=== PATIENT | female | born 1955 | race Asian ===

== ENCOUNTER 2017-12-23 15:07 | Emergency (ER) | payer OTHER ==
--- NOTE | 2017-12-23 16:44 | ED Physician Documentation ---
History of Present Illness - Stated complaint Stated Complaint: LEG SWELLING/PX - Chief complaint Chief Complaint: General - Additonal information Additional information: 62-year-old female presents the emergency department with intermittent leg cramps which have been worse in the right lower extremity than the left. The patient also reports intermittent leg swelling. Presently, the patient has no leg pain or swelling. The patient has recently been tiling and being in awkward positions. The patient denies any pain in her joints, redness, fevers, chest pain, shortness of breath. The patient also reports a rash on her right lower l eg. Symptoms currently are described as mild. No other associated symptoms Review of Systems Constitutional: denies: Fever, Chills Throat: denies: Sore throat Cardiac: denies: Chest pain / pressure, Palpitations Respiratory: denies: Cough Skin: reports: Rash Musculoskeletal: reports: Extremity pain. denies: Neck pain, Back pain, Extremity swelling, Joint swelling Immunocompromised: denies: Chemotherapy PD PAST MEDICAL HISTORY - Past Medical History Past Medical History: No - Past Surgical History Past Surgical History: No - Present Medications Home Medications: Ambulatory Orders Medication Instructions Recorded Confirmed No Known Home Medications 12/23/17 12/23/17 - Allergies Allergies/Adverse Reactions: Allergies Allergy/AdvReac Type Severity Reaction Status Date / Time No Known Drug Allergies Allergy Verified 12/23/17 15:14 - Social History Does the pt smoke?: Yes Smoking Status: Current every day smoker Does the pt drink ETOH?: Yes ETOH Use: Wine Does the pt have substance abuse?: No - Immunizations Immunizations are current?: Yes - POLST Patient has POLST: No PD ED PE NORMAL - General General: Alert and oriented X 3, No acute distress - HEENT HEENT: Atraumatic, PERRL, EOMI, Ears normal - Neck Neck: Supple, no meningeal sign - Cardiac Cardiac: RRR, Strong equal pulses - Respiratory Respiratory: No respiratory distress, Clear bilaterally - Derm Derm: Other (The patient has 2 small areas of contact dermatitis on her right lower extremity). No: No rash - Extremities Extremities: No deformity, No tenderness to palpate, Normal ROM s pain, No edema, No calf tenderness / cord, Other (The patient has no acute tenderness of her lower extremities, there is no swelling of the lower extremities, no signs of abscess or cellulitis. The patient has a normal dorsalis pedis pulse bilaterally and normal cap refill.) - Neuro Neuro: Alert and oriented X 3, No motor deficit, Normal speech - Psych Psych: Normal affect PD ED PE EXPANDED - Extremities JENNIFER LE visual: 1 - rash (Contact dermatitis) Results - Vitals Vitals: Vital Signs - 24 hr 12/23/17 12/23/17 15:11 18:26 Temperature 36.0 C L 36.6 C Heart Rate 95 76 Respiratory 16 16 Rate Blood Pressure 146/85 H 125/81 H O2 Saturation 99 100 Oxygen O2 Source Room air - Labs Labs: Laboratory Tests 12/23/17 16:52 Sodium 142 Potassium 3.8 Chloride 109 Carbon Dioxide 26 Anion Gap 7.0 BUN 16 Creatinine 0.6 Estimated GFR (MDRD) 101 Glucose 110 H Calcium 8.8 Total Creatine Kinase 260 PD MEDICAL DECISION MAKING - ED course ED course: A venous ultrasound was ordered to rule out a DVT, the patient has declined the study since she is currently not having any acute symptoms. I explained to the patient that I thought the probability of a DVT was low risk but I could not fully rule out a DVT without an ultrasound. The patient's comfortable with this and would prefer to be discharged and follow-up with her primary care as an outpatient. 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 The patient will follow up as an outpatient. I discussed warning signs and recommended returning in a point for reevaluation. - Sepsis Event Vital Signs: Vital Signs - 24 hr 12/23/17 12/23/17 15:11 18:26 Temperature 36.0 C L 36.6 C Heart Rate 95 76 Respiratory 16 16 Rate Blood Pressure 146/85 H 125/81 H O2 Saturation 99 100 Oxygen O2 Source Room air Departure - Departure Disposition: 01 Home, Self Care Clinical Impression: Leg pain Qualifiers: Laterality: unspecified laterality Qualified Code(s): M79.606 - Pain in leg, unspecified Contact dermatitis Qualifiers: Contact dermatitis type: unspecified Contact dermatitis trigger: unspecified trigger Qualified Code(s): L25.9 - Unspecified contact dermatitis, unspecified cause Condition: Good Instructions: ED Dermatitis Contact, ED Muscle Pain Leg Cramps Comments: Please follow-up with primary care for recheck and reevaluation. You declined have an ultrasound to rule out a blood clot in your lower extremity. Please return any point for reevaluation or for worsening symptoms or any concerns. Discharge Date/Time: 12/23/17 18:26
[2017-12-23 17:14] LABS: CALCIUM 8.8 mg/dL (8.5-10.3); CREATININE 0.6 mg/dL (0.4-1.0)
[2017-12-23 18:27] VITALS: BP 125/81
== END 2017-12-23 18:26 | disposition home or self-care (01) ==
LOC: ED 15:07
DX: M79.605 Pain in left leg (principal); M79.604 Pain in right leg; L25.9 Unspecified contact dermatitis, unspecified cause; F17.200 Nicotine dependence, unspecified, uncomplicated
CPT/HCPCS: 36415; 80048; 82550; 99282; 99283